=== PATIENT | male | born 1940 | race Caucasian/White ===

== ENCOUNTER 2016-08-15 14:32 | Outpatient (CLI) | payer MEDICARE | END 2016-08-15 14:33 | disposition home or self-care (01) | DX: I48.1 Persistent atrial fibrillation (principal) ==

== ENCOUNTER 2016-08-29 13:33 | Outpatient (CLI) | payer MEDICARE | END 2016-08-29 13:34 | disposition home or self-care (01) | DX: I48.1 Persistent atrial fibrillation (principal) ==

== ENCOUNTER 2016-09-18 15:37 | Outpatient (CLI) | payer MEDICARE | END 2016-09-18 15:38 | disposition home or self-care (01) | DX: I48.1 Persistent atrial fibrillation (principal) ==

== ENCOUNTER 2016-09-28 15:04 | Outpatient (CLI) | payer MEDICARE | END 2016-09-28 15:05 | disposition home or self-care (01) | DX: I48.1 Persistent atrial fibrillation (principal) ==

== ENCOUNTER 2016-10-18 14:50 | Outpatient (CLI) | payer MEDICARE | END 2016-10-18 14:51 | disposition home or self-care (01) | DX: I48.1 Persistent atrial fibrillation (principal) ==

== ENCOUNTER 2016-11-16 14:56 | Outpatient (CLI) | payer MEDICARE | END 2016-11-16 14:57 | disposition home or self-care (01) | DX: I48.1 Persistent atrial fibrillation (principal) ==

== ENCOUNTER 2016-12-14 13:21 | Outpatient (CLI) | payer MEDICARE | END 2016-12-14 13:22 | disposition home or self-care (01) | DX: I48.1 Persistent atrial fibrillation (principal) ==

== ENCOUNTER 2017-01-11 14:15 | Outpatient (CLI) | payer MEDICARE | END 2017-01-11 14:16 | disposition home or self-care (01) | DX: I48.1 Persistent atrial fibrillation (principal) ==

== ENCOUNTER 2017-02-01 11:40 | Outpatient (CLI) | payer MEDICARE | END 2017-02-01 11:41 | disposition home or self-care (01) | LOC: LAB.F 11:40 | PROVIDERS: ATTEND Internal Medicine | DX: I48.1 Persistent atrial fibrillation (principal) | CPT/HCPCS: 85610 ==

== ENCOUNTER 2017-02-15 14:37 | Outpatient (CLI) | payer MEDICARE | END 2017-02-15 14:38 | disposition home or self-care (01) | LOC: LAB.F 14:37 | PROVIDERS: ATTEND Internal Medicine | DX: I48.1 Persistent atrial fibrillation (principal) | CPT/HCPCS: 85610 ==

== ENCOUNTER 2017-03-01 12:38 | Outpatient (CLI) | payer MEDICARE | END 2017-03-01 12:39 | disposition home or self-care (01) | LOC: LAB.F 12:38 | PROVIDERS: ATTEND Internal Medicine | DX: I48.1 Persistent atrial fibrillation (principal) | CPT/HCPCS: 85610 ==

== ENCOUNTER 2017-03-29 14:41 | Outpatient (CLI) | payer MEDICARE | END 2017-03-29 14:42 | disposition home or self-care (01) | LOC: LAB.F 14:41 | PROVIDERS: ATTEND Internal Medicine | DX: I48.1 Persistent atrial fibrillation (principal) | CPT/HCPCS: 85610 ==

== ENCOUNTER 2017-04-27 14:38 | Outpatient (CLI) | payer MEDICARE | END 2017-04-27 14:39 | disposition home or self-care (01) | LOC: LAB.F 14:38 | PROVIDERS: ATTEND Internal Medicine | DX: I48.1 Persistent atrial fibrillation (principal) | CPT/HCPCS: 85610 ==

== ENCOUNTER 2017-05-25 13:32 | Outpatient (CLI) | payer MEDICARE | END 2017-05-25 13:33 | disposition home or self-care (01) | LOC: LAB.F 13:32 | PROVIDERS: ATTEND Internal Medicine | DX: I48.1 Persistent atrial fibrillation (principal) | CPT/HCPCS: 85610 ==

== ENCOUNTER 2017-07-09 13:40 | Outpatient (CLI) | payer MEDICARE | END 2017-07-09 13:41 | disposition home or self-care (01) | LOC: LAB.F 13:40 | PROVIDERS: ATTEND Internal Medicine | DX: I48.1 Persistent atrial fibrillation (principal) | CPT/HCPCS: 85610 ==

== ENCOUNTER 2017-07-23 13:29 | Outpatient (CLI) | payer MEDICARE | END 2017-07-23 13:30 | disposition home or self-care (01) | LOC: LAB.F 13:29 | PROVIDERS: ATTEND Internal Medicine | DX: I48.1 Persistent atrial fibrillation (principal) | CPT/HCPCS: 85610 ==

== ENCOUNTER 2017-08-03 14:45 | Outpatient (CLI) | payer MEDICARE | END 2017-08-03 14:46 | disposition home or self-care (01) | LOC: LAB.F 14:45 | PROVIDERS: ATTEND Internal Medicine | DX: I48.1 Persistent atrial fibrillation (principal) | CPT/HCPCS: 85610 ==

== ENCOUNTER 2017-08-24 14:50 | Outpatient (CLI) | payer MEDICARE | END 2017-08-24 14:51 | disposition home or self-care (01) | LOC: LAB.F 14:50 | PROVIDERS: ATTEND Internal Medicine | DX: I48.1 Persistent atrial fibrillation (principal) | CPT/HCPCS: 85610 ==

== ENCOUNTER 2017-09-25 13:53 | Outpatient (CLI) | payer MEDICARE | END 2017-09-25 13:54 | disposition home or self-care (01) | LOC: LAB.F 13:53 | PROVIDERS: ATTEND Internal Medicine | DX: I48.1 Persistent atrial fibrillation (principal) | CPT/HCPCS: 85610 ==

== ENCOUNTER 2017-10-23 13:36 | Outpatient (CLI) | payer MEDICARE | END 2017-10-23 13:37 | disposition home or self-care (01) | LOC: LAB.F 13:36 | PROVIDERS: ATTEND Internal Medicine | DX: I48.1 Persistent atrial fibrillation (principal) | CPT/HCPCS: 85610 ==

== ENCOUNTER 2017-11-20 15:05 | Outpatient (CLI) | payer MEDICARE | END 2017-11-20 15:06 | disposition home or self-care (01) | LOC: LAB.F 15:05 | PROVIDERS: ATTEND Internal Medicine | DX: I48.1 Persistent atrial fibrillation (principal) | CPT/HCPCS: 85610 ==

== ENCOUNTER 2017-12-18 11:30 | Outpatient (CLI) | payer MEDICARE | END 2017-12-18 11:31 | disposition home or self-care (01) | LOC: LAB.F 11:30 | PROVIDERS: ATTEND Internal Medicine | DX: I48.1 Persistent atrial fibrillation (principal) | CPT/HCPCS: 85610 ==

== ENCOUNTER 2018-01-15 15:27 | Outpatient (CLI) | payer MEDICARE | END 2018-01-15 15:28 | disposition home or self-care (01) | LOC: LAB.F 15:27 | PROVIDERS: ATTEND Internal Medicine | DX: I48.1 Persistent atrial fibrillation (principal) | CPT/HCPCS: 85610 ==

== ENCOUNTER 2018-02-19 10:32 | Outpatient (CLI) | payer MEDICARE | END 2018-02-19 10:33 | disposition home or self-care (01) | LOC: LAB.F 10:32 | PROVIDERS: ATTEND Internal Medicine | DX: I48.1 Persistent atrial fibrillation (principal) | CPT/HCPCS: 85610 ==

== ENCOUNTER 2018-03-01 10:45 | Outpatient (CLI) | payer MEDICARE | END 2018-03-01 10:46 | disposition home or self-care (01) | LOC: LAB.F 10:45 | PROVIDERS: ATTEND Internal Medicine | DX: I48.1 Persistent atrial fibrillation (principal) | CPT/HCPCS: 85610 ==

== ENCOUNTER 2018-03-12 13:43 | Outpatient (CLI) | payer MEDICARE | END 2018-03-12 13:44 | disposition home or self-care (01) | LOC: LAB.F 13:43 | PROVIDERS: ATTEND Internal Medicine | DX: I48.1 Persistent atrial fibrillation (principal) | CPT/HCPCS: 85610 ==

== ENCOUNTER 2018-03-19 14:11 | Outpatient (CLI) | payer MEDICARE | END 2018-03-19 14:12 | disposition home or self-care (01) | LOC: LAB.F 14:11 | PROVIDERS: ATTEND Internal Medicine | DX: I48.1 Persistent atrial fibrillation (principal) | CPT/HCPCS: 85610 ==

== ENCOUNTER 2018-03-26 14:46 | Outpatient (CLI) | payer MEDICARE | END 2018-03-26 14:47 | disposition home or self-care (01) | LOC: LAB.F 14:46 | PROVIDERS: ATTEND Internal Medicine | DX: I48.1 Persistent atrial fibrillation (principal) | CPT/HCPCS: 85610 ==

== ENCOUNTER 2018-04-02 11:17 | Outpatient (CLI) | payer MEDICARE | END 2018-04-02 11:18 | disposition home or self-care (01) | LOC: LAB.F 11:17 | PROVIDERS: ATTEND Internal Medicine | DX: I48.1 Persistent atrial fibrillation (principal) | CPT/HCPCS: 85610 ==